=== PATIENT | male | born 1960 | race Caucasian/White ===

== ENCOUNTER 2024-01-19 15:11 | Emergency (ER) | payer OTHER ==
[~2024-01-19] VITALS: Ht 182.9 cm; Wt 102.1 kg
[2024-01-19 15:20] VITALS: BP_SYST 207; PULSE 64; RESP 18; TEMP 98.2; O2SAT 97
[2024-01-19] MEDS ORDERED: ACETAMINOPHEN 500 MG TABLET PO ONE (15:45)
[2024-01-19] MEDS: cloNIDine HCL 0.1 MG TABLET PO ONE (15:56)
[2024-01-19 16:14] VITALS: BP_SYST 190; PULSE 84; RESP 18; O2SAT 99
== END 2024-01-19 16:30 ==
LOC: SED 15:11
DX: R51.9 Headache, unspecified (principal); I12.0 Hypertensive chronic kidney disease with stage 5 chronic kidney disease or end stage renal disease; E11.22 Type 2 diabetes mellitus with diabetic chronic kidney disease; N18.6 End stage renal disease; E78.5 Hyperlipidemia, unspecified; Z99.2 Dependence on renal dialysis
CPT/HCPCS: 99283